=== PATIENT | female | born 1965 | race Caucasian/White ===

== ENCOUNTER 2019-08-31 08:07 | Day surgery (SDC) | payer BC, OTHER ==
[~2019-08-31 08:07] MED LIST: Lactated Ringers 1,000 ML IV SCH; Sodium Chloride 0.9% 10 ML SDV IV PRN; Sodium Chloride 0.9% 10 ML Syringe FLUSH PRN; Sodium Chloride 0.9% 2.5 ML Syringe FLUSH PRN
[2019-08-31] MEDS ORDERED: Chloroprocaine 10 MG/ML 5 ML Amp ONE (09:07)
[2019-08-31] MEDS ORDERED: Propofol 200 MG/20 ML SDV ONE (09:09)
--- NOTE | 2019-08-31 09:09 | PCM.PREANE ---
Preanesthetic Assessment - Anesthesia/Transfusion/Family Hx Anesthesia History: Prior Anesthesia Without Reaction Family History of Anesthesia Reaction: No Transfusion History: No Prior Transfusion(s) - Review of Systems General: No Symptoms Pulmonary: Cough Cardiovascular: No Symptoms Gastrointestinal: No Symptoms Neurological: No Symptoms Other: Reports: None - Physical Assessment NPO Status Date: 08/31/19 NPO Status Time: 07:00 Vital Signs: Last Vital Signs Temp 95.4 F L 08/31/19 08:20 Pulse 88 08/31/19 08:20 Resp 16 08/31/19 08:20 BP 131/90 08/31/19 08:20 Pulse Ox 96 08/31/19 08:20 Height: 5 ft 2 in Weight: 87.997 kg ASA Class: 2 Mental Status: Alert & Oriented x3 Airway Class: Mallampati = 2 Dentition: Reports: Normal Dentition ROM/Head Extension: Full Lungs: Clear to Auscultation, Normal Respiratory Effort Cardiovascular: Regular Rate, Regular Rhythm - Allergies Allergies/Adverse Reactions: Allergies Allergy/AdvReac Type Severity Reaction Status Date / Time hydrocodone Allergy Hives Verified 08/25/19 10:14 lisinopril Allergy Cough Verified 08/25/19 10:14 Sulfa (Sulfonamide Allergy Rash Verified 08/25/19 10:14 Antibiotics) - Blood Blood Available: No - Anesthesia Plan Pre-Op Medication Ordered: None - Acknowledgements Anesthesia Type Planned: Spinal Pt an Appropriate Candidate for the Planned Anesthesia: Yes Alternatives and Risks of Anesthesia Discussed w Pt/Guardian: Yes Pt/Guardian Understands and Agrees with Anesthesia Plan: Yes Additional Comments: PMHJ: current URI, htn, dm2- sugar today 113, thyroid replacement,s/p cerv fusion with preserved cervical ROM PLAN: chloroprocain spinal with sedation PreAnesthesia Questionnaire HEENT History: Reports: Allergic Rhinitis Cardiovascular History: Reports: Hypertension Respiratory History: Reports: None Gastrointestinal History: Reports: GERD, Other (See Below) Other Gastrointestinal History: "fatty liver" Genitourinary History: Reports: None KNIFE EDGER History: Reports: , Spontaneous Musculoskeletal History: Reports: Arthritis, Fracture Other Musculoskeletal History: hx fx ankle & elbow Neurological History: Reports: None Psychiatric History: Reports: Anxiety Endocrine/Metabolic History: Reports: Diabetes, Type II, Hypothyroidism, Obesity/BMI 30+ Hematologic History: Reports: Anemia Immunologic History: Reports: None Oncologic (Cancer) History: Reports: None Dermatologic History: Reports: None - Past Surgical History Head Surgeries/Procedures: Reports: None HEENT Surgical History: Reports: Oral Surgery Cardiovascular Surgical History: Reports: None Respiratory Surgical History: Reports: None GI Surgical History: Reports: None Female Surgical History: Reports: Section, D&C Endocrine Surgical History: Reports: None Neurological Surgical History: Reports: C-Spine Other Neurological Surgeries/Procedures: hx cervical spine fusion with removal of bone spur Musculoskeletal Surgical History: Reports: None Oncologic Surgical History: Reports: None Dermatological Surgical History: Reports: None - SUBSTANCE USE Smoking Status *Q: Current Every Day Smoker Tobacco Use Within Last Twelve Months: Cigarettes - HOME MEDS Home Medications: Home Meds Levothyroxine Sodium [Synthroid] 125 mcg PO DAILY 09/02/13 [History] Omeprazole 20 mg PO DAILY 09/02/13 [History] amLODIPine Besylate [Amlodipine Besylate] 5 mg PO DAILY 09/02/13 [History] Escitalopram Oxalate [Lexapro] 10 tab PO DAILY 02/14/19 [History] Telmisartan 40 mg PO DAILY 02/14/19 [History] hydroCHLOROthiazide [Microzide] 25 mg PO DAILY 02/14/19 [History] metFORMIN [Glucophage XR] 2 tab PO DAILY 02/14/19 [History] Ascorbic Acid/Multivit-Min [Emergen-C 1,000 mg Packet] 1 pkt PO DAILY 08/25/19 [History] Diclofenac Sodium 75 mg PO DAILY 08/25/19 [History] Loratadine/Pseudoephedrine [Claritin-D 24 Hour Tablet] 1 tab PO DAILY 08/25/19 [History] - CURRENT (IN HOUSE) MEDS Current Meds: Current Medications Lactated Ringer's (Ringers, Lactated) 1,000 mls @ 100 mls/hr IV ASDIRECTED JAN Last Admin: 08/31/19 08:30 Dose: 100 mls/hr Documented by: Sodium Chloride (Saline Flush) 10 ml FLUSH ASDIRECTED PRN PRN Reason: Keep Vein Open Sodium Chloride (Saline Flush) 2.5 ml FLUSH ASDIRECTED PRN PRN Reason: Keep Vein Open Sodium Chloride (Normal Saline) 10 ml IV ASDIRECTED PRN PRN Reason: IV Use
[2019-08-31] MEDS ORDERED: Midazolam 1 MG/ML 2 ML SDV ONE (09:10)
[2019-08-31] MEDS ORDERED: Lidocaine 2% 5 ML SDV ONE (09:10)
[2019-08-31] MEDS ORDERED: fentaNYL 100 MCG/2 ML SDV ONE (09:10)
--- NOTE | 2019-08-31 10:22 | PCM.OPNOTE ---
- General Post-Op/Procedure Note Date of Surgery/Procedure: 08/31/19 Operative Procedure(s): Operative hysteroscopy with polypectomy, D&C Findings: 2 polypoid lesions visualized Pre Op Diagnosis: Postmenopausal bleeding Post-Op Diagnosis: Same Anesthesia Technique: Spinal Primary Surgeon: Sharmin Higgins Fluid Replacement, Intraop: 600 (560 deficit NS) EBL in mLs: 10 Complications: none known Condition: Stable Free Text/Narrative:: Dictation [id number]
--- NOTE | 2019-08-31 10:49 | PCM.POSTAN ---
POST ANESTHESIA ASSESSMENT - MENTAL STATUS Mental Status: Alert, Oriented - VITAL SIGNS Vital Signs: Last Vital Signs Temp 97.2 F 08/31/19 10:13 Pulse 62 08/31/19 10:40 Resp 13 08/31/19 10:40 BP 95/64 08/31/19 10:40 Pulse Ox 99 08/31/19 10:40 - RESPIRATORY Respiratory Status: Respiratory Rate WNL, Airway Patent, O2 Saturation Stable - CARDIOVASCULAR CV Status: Pulse Rate WNL, Blood Pressure Stable - GASTROINTESTINAL GI Status: No Symptoms - PAIN Pain Score: 0 - POST OP HYDRATION Hydration Status: Adequate & Stable - OBSERVATIONS Free Text/Narrative:: L1 sensory level in recovery. Progressively decreasing block level. BP has stabilized.
--- NOTE | 2019-08-31 11:55 | PCM48HPAN ---
Post Anesthesia Note - EVALUATION WITHIN 48HRS OF ANESTHETIC Vital Signs in Normal Range: Yes Patient Participated in Evaluation: Yes Respiratory Function Stable: Yes Airway Patent: Yes Cardiovascular Function Stable: Yes Hydration Status Stable: Yes Pain Control Satisfactory: Yes Nausea and Vomiting Control Satisfactory: Yes Mental Status Recovered: Yes Vital Signs: Last Vital Signs Temp 96.4 F L 08/31/19 10:53 Pulse 70 08/31/19 11:23 Resp 16 08/31/19 11:23 BP 127/63 08/31/19 11:23 Pulse Ox 99 08/31/19 11:23
--- NOTE | 2019-08-31 15:58 | OR ---
SURGEON: Sharmin Higgins M.D. DATE OF PROCEDURE: 08/31/2019 PREOPERATIVE DIAGNOSIS: Postmenopausal bleeding. POSTOPERATIVE DIAGNOSIS: Postmenopausal bleeding. PROCEDURES: Operative hysteroscopy, polypectomy, dilation and curettage. PRIMARY SURGEON: Sharmin Higgins MD ANESTHESIA: Spinal. ESTIMATED BLOOD LOSS: 10 mL. FLUIDS: 600 mL of crystalloid. FLUID DEFICIT: 560 mL of normal saline. FINDINGS: Two polypoid lesions arising from the right fundal region of the uterus. Otherwise, normal appearing uterine cavity with atrophic endometrium otherwise. DISPOSITION: The patient to PACU in stable condition, specimen to pathology. PROCEDURE DETAILS: Magda is a 53-year-old female who has ongoing difficulties with postmenopausal bleeding. Endometrial biopsy in the past had been benign. Sonogram reveals a significantly thickened endometrium that was suggestive of polypoid lesion. Therefore, after discussion, we are opting to proceed with surgical intervention in the form of hysteroscopy to further evaluate the endometrial cavity with resection of any polyps or fibroids that may be present. Risks of procedure have been discussed. Proper consent obtained. The patient was taken to the operating room where she underwent spinal anesthetic, was placed in the dorsal lithotomy position, prepped and draped in usual sterile fashion. Bladder was drained. Time-out was performed. Speculum was introduced in the vagina. Cervix was visualized. Anterior lip of the cervix was visualized. A 3 mm hysteroscope was gently introduced using normal saline as distention media. I was able to visualize the uterine cavity, therefore, switched out to a MyoSure scope. First dilated to 6 mm. Introduced the MyoSure hysteroscope. I was able to visualize the two polypoid lesions once again as well as the left ostium. The right ostium at this time was obscured due to the origin of the polyp. Therefore, MyoSure was introduced and MyoSure was used to resect the two polypoid lesions. At this juncture, I was able to visualize the fundus, both ostia, lower uterine segment, endocervical canal with no other intracavitary lesions identified. The MyoSure resectoscope and the hysteroscope were now removed. Gentle curettage of the endometrium was now performed, specimen to pathology. Sponge and instrument count was correct. The patient will go to PACU in stable condition. All instruments removed from the vagina. Hemostasis was evident. Specimens will go to pathology. SOLBSAR / MODL /[id number]
== END 2019-08-31 11:40 | disposition home or self-care (01) ==
LOC: MW.SDS 08:07
PROVIDERS: ATTEND Obstetrics & Gynecology
DX: N84.0 Polyp of corpus uteri (principal); K21.9 Gastro-esophageal reflux disease without esophagitis; I10 Essential (primary) hypertension; F41.9 Anxiety disorder, unspecified; E11.9 Type 2 diabetes mellitus without complications; E03.9 Hypothyroidism, unspecified; E66.9 Obesity, unspecified; F17.210 Nicotine dependence, cigarettes, uncomplicated; Z79.890 Hormone replacement therapy; Z79.899 Other long term (current) drug therapy; Z79.84 Long term (current) use of oral hypoglycemic drugs; Z68.35 Body mass index [BMI] 35.0-35.9, adult; Z88.5 Allergy status to narcotic agent; Z88.8 Allergy status to other drugs, medicaments and biological substances; Z88.2 Allergy status to sulfonamides; Z98.890 Other specified postprocedural states
CPT/HCPCS: 00952; 82962; 88305; J2001; J2250; J2400; J2704; J3010; J7120

== ENCOUNTER 2024-12-23 09:25 | Day surgery (SDC) | payer OTHER ==
[~2024-12-23 09:25] MED LIST changes: +Albuterol 0.083% 2.5 MG/3 ML Neb Soln NEB PRN; -Lactated Ringers 1,000 ML IV SCH; +Naloxone 0.4 MG/ML SDV IVPUSH PRN; +Ondansetron 4 MG/2 ML SDV IVPUSH PRN; -Sodium Chloride 0.9% 10 ML SDV IV PRN; +ceFAZolin 2 GM in Water For Injection, Sterile 20 ML IVPUSH ONE
[2024-12-23] MEDS ORDERED: Ropivacaine 0.5% 5 MG/ML 30 ML SDV ONE (10:06)
[2024-12-23] MEDS ORDERED: dexmedeTOMIDine HCl 200 MCG/2 ML SDV ONE (10:14)
[2024-12-23] MEDS: Lactated Ringers 1,000 ML IV SCH (10:20)
[2024-12-23] MEDS ORDERED: Propofol 200 MG/20 ML SDV ONE (10:28)
[2024-12-23] MEDS ORDERED: fentaNYL 100 MCG/2 ML SDV ONE (10:28)
[2024-12-23] MEDS ORDERED: Ondansetron 4 MG/2 ML SDV ONE (11:40)
[2024-12-23] MEDS ORDERED: Dexamethasone 4 MG/ML 5 ML MDV ONE (11:40)
[2024-12-23] MEDS ORDERED: ePHEDrine 50 MG/ML SDV ONE (12:04)
[2024-12-23] MEDS ORDERED: Ketorolac 30 MG/ML SDV ONE (12:24)
[2024-12-23] MEDS: fentaNYL 50 MCG/ML SDV IVPUSH PRN (13:51)
== END 2024-12-23 14:40 | disposition home or self-care (01) ==
LOC: MW.SDS 09:25
PROVIDERS: ATTEND Surgery
DX: K43.9 Ventral hernia without obstruction or gangrene (principal); K42.9 Umbilical hernia without obstruction or gangrene; I10 Essential (primary) hypertension; E78.00 Pure hypercholesterolemia, unspecified; E03.9 Hypothyroidism, unspecified; E11.9 Type 2 diabetes mellitus without complications; E66.9 Obesity, unspecified; F17.200 Nicotine dependence, unspecified, uncomplicated; Z88.8 Allergy status to other drugs, medicaments and biological substances; Z88.5 Allergy status to narcotic agent; Z88.2 Allergy status to sulfonamides; Z68.30 Body mass index [BMI] 30.0-30.9, adult; Z79.899 Other long term (current) drug therapy; Z79.890 Hormone replacement therapy
CPT/HCPCS: 49593; C1781; J0690; J1100; J1171; J1885; J2405; J2704; J2795; J3010; J7120; J7999; 00832; 64488; J0665; J2371; J3490